=== PATIENT | female | born 1955 | race Caucasian/White ===

== ENCOUNTER → 2023-12-30 | Outpatient (CLI) | payer MEDICARE ==
[~2023-12-30] MED LIST: ADVI1CAP2 PO; CALC1TAB42 PO; CHRO400T4 PO; D 10CAP PO; GASTROGRAFIN SOLUTION 30ML As Ordered ONE; GLUC1TAB58 PO; IBUP-1857 PO; ISOVUE-370 76% 100ML VIAL As Ordered ONE; LETR2.5T2 PO; MAGN120C2 PO; MULT1TAB94 PO; QUNO100C PO; ROBI1LIQ9 PO; VERZ150T PO; [UNRECOGNIZED DRUG - CODE] PO; zinc PO
== END ==
LOC: M RAD 14:47
PROVIDERS: ATTEND Internal Medicine Hematology & Oncology
DX: C50.412 Malignant neoplasm of upper-outer quadrant of left female breast (principal); R91.8 Other nonspecific abnormal finding of lung field; R19.06 Epigastric swelling, mass or lump
CPT/HCPCS: 71260; 74177; Q9963; Q9967

== ENCOUNTER → 2024-04-14 | Outpatient (CLI) | payer MEDICARE ==
[~2024-04-14] MED LIST changes: -MAGN120C2 PO; +MAGNESIUM GLYC120 MG PO
== END ==
LOC: M RAD 14:35
PROVIDERS: ATTEND Internal Medicine Hematology & Oncology
DX: C50.912 Malignant neoplasm of unspecified site of left female breast (principal); K76.0 Fatty (change of) liver, not elsewhere classified; N28.1 Cyst of kidney, acquired; D25.2 Subserosal leiomyoma of uterus; M47.9 Spondylosis, unspecified; R91.8 Other nonspecific abnormal finding of lung field
CPT/HCPCS: 71260; 74177; Q9963; Q9967

== ENCOUNTER → 2024-07-19 | Outpatient (CLI) | payer MEDICARE | LOC: M RAD 11:01 | PROVIDERS: ATTEND Internal Medicine Hematology & Oncology | DX: C50.912 Malignant neoplasm of unspecified site of left female breast (principal) | CPT/HCPCS: 71260; 74177; Q9963; Q9967 ==

== ENCOUNTER → 2024-10-18 | Outpatient (CLI) | payer MEDICARE ==
[~2024-10-18] MED LIST changes: -GASTROGRAFIN SOLUTION 30ML As Ordered ONE
== END ==
LOC: M RAD 12:22
PROVIDERS: ATTEND Internal Medicine Medical Oncology
DX: R91.8 Other nonspecific abnormal finding of lung field (principal); R93.7 Abnormal findings on diagnostic imaging of other parts of musculoskeletal system; C50.912 Malignant neoplasm of unspecified site of left female breast
CPT/HCPCS: 71260; 74177; Q9967

== ENCOUNTER → 2025-02-18 | Outpatient (CLI) | payer MEDICARE ==
[~2025-02-18] MED LIST changes: -ISOVUE-370 76% 100ML VIAL As Ordered ONE; +ISOVUE-370 76% 100ML VIAL ONE
== END ==
LOC: M PLAIMG 10:32
PROVIDERS: ATTEND Internal Medicine Medical Oncology
DX: C50.919 Malignant neoplasm of unspecified site of unspecified female breast (principal); N28.1 Cyst of kidney, acquired; D26.7 Other benign neoplasm of other parts of uterus; R91.8 Other nonspecific abnormal finding of lung field; I25.10 Atherosclerotic heart disease of native coronary artery without angina pectoris
CPT/HCPCS: 71270; 74178; Q9967